=== PATIENT | male | born 1965 | race Caucasian/White ===

== ENCOUNTER 2017-11-17 10:49 | Emergency (ER) | payer BC, OTHER ==
[2017-11-17] MEDS ORDERED: Sodium Chloride 0.9% 10 ML Syringe FLUSH PRN (11:41)
--- NOTE | 2017-11-17 11:50 | EDM.PDOC ---
ED HPI GENERAL MEDICAL PROBLEM - General Chief Complaint: Abdominal Pain Stated Complaint: ABDOMINAL PAIN Time Seen by Provider: 11/17/17 12:00 Source of Information: Reports: Patient, Old Records History Limitations: Reports: No Limitations - History of Present Illness INITIAL COMMENTS - FREE TEXT/NARRATIVE: 52-year-old male [place] for evaluation and treatment of right upper quadrant abdominal pain. Patient reports he first developed pain on November 08. Reports pain in the right upper quadrant. He was seen in the [facility] in [place] on November 12. Labs and imaging were done. She was referred to his primary care provider. He states that he presented there today but due to pain he was sent to the ER. Patient is currently complaining of episodic right upper quadrant pain. States now the pain is a 3 or 4. He has been taking ibuprofen with little symptom relief. He being concerned today when he appreciated a "lump " to the right upper quadrant. Patient denies any associated fevers, vomiting, pruritus, jaundice, urinary symptoms, diarrhea or constipation. Reports that his bowel movements have been softer than normal. No melena or hematochezia. Reports he has been feeling nauseous. Patient denies any recent illness. He denies any recent trauma. Unknown what triggered the right upper quadrant pain. Abdominal Pain Score (Numeric/FACES): 3 - Related Data Allergies Allergy/AdvReac Type Severity Reaction Status Date / Time No Known Allergies Allergy Verified 11/17/17 10:57 Home Meds: Home Meds Fluticasone Propionate [Flovent] 2 spray INH DAILY 11/17/17 [History] SUMAtriptan Succinate [Sumatriptan Succinate] 50 mg PO ASDIRECTED 11/17/17 [ History] Sucralfate [Carafate] 1 gm PO TID #30 tablet 11/17/17 [Rx] Venlafaxine HCl [Venlafaxine HCl ER] 225 mg PO DAILY 11/17/17 [History] amLODIPine [Norvasc] 5 mg PO DAILY 11/17/17 [History] Past Medical History HEENT History: Reports: Hard of Hearing, Impaired Vision Other HEENT History: hearing aids; wears glasses Cardiovascular History: Reports: Hypertension Respiratory History: Reports: Sleep Apnea Genitourinary History: Reports: Renal Calculus Neurological History: Reports: Migraines Psychiatric History: Reports: Depression - Past Surgical History GI Surgical History: Reports: Cholecystectomy Social & Family History - Family History Family Medical History: Noncontributory - Tobacco Use Smoking Status *Q: Never Smoker - Caffeine Use Caffeine Use: Reports: Coffee - Recreational Drug Use Recreational Drug Use: No ED ROS GENERAL - Review of Systems Review Of Systems: See Below Constitutional: Denies: Fever, Chills Respiratory: Denies: Shortness of Breath, Cough Cardiovascular: Denies: Chest Pain GI/Abdominal: Reports: Abdominal Pain (RUQ). Denies: Constipation, Diarrhea, Hematochezia, Melena, Nausea, Vomiting : Denies: Dysuria, Hematuria Skin: Reports: Lumps (RUQ). Denies: Jaundice, Pruritis ED EXAM, GI/ABD - Physical Exam Exam: See Below Exam Limited By: No Limitations General Appearance: Alert, WD/WN, No Apparent Distress Respiratory/Chest: No Respiratory Distress, Lungs Clear, Normal Breath Sounds Cardiovascular: Normal Peripheral Pulses, Regular Rate, Rhythm, Systolic Murmur (grade 2) GI/Abdominal Exam: Normal Bowel Sounds, Soft, Non-Tender, Hepatomegaly. No: Distended, Guarding, Rigid, Rebound Neurological: Alert, Oriented, Normal Cognition Psychiatric: Flat Affect Skin Exam: Warm, Dry, Normal Color Course - Vital Signs Last Recorded V/S: Last Vital Signs Temp 36.1 C 11/17/17 10:57 Pulse 61 11/17/17 10:57 Resp 18 11/17/17 10:57 BP 137/99 H 11/17/17 10:57 Pulse Ox 99 11/17/17 10:57 - Orders/Labs/Meds Labs: Laboratory Tests 11/17/17 11/17/17 11/17/17 Range/Units 11:55 11:55 13:15 WBC 5.75 (4.23-9.07) K/mm3 RBC 4.99 (4.63-6.08) M/mm3 Hgb 14.3 (13.7-17.5) gm/L Hct 41.8 (40.1-51.0) % MCV 83.8 (79.0-92.2) fl MCH 28.7 (25.7-32.2) pg MCHC 34.2 (32.2-35.5) g/dl RDW Std Deviation 41.3 (35.1-43.9) fL Plt Count 223 (163-337) K/mm3 MPV 8.9 L (9.4-12.3) fl Neutrophils % (Manual) 53 (40-60) % Band Neutrophils % 0 (0-10) % Lymphocytes % (Manual) 33 (20-40) % Atypical Lymphs % 0 % Monocytes % (Manual) 12 H (2-10) % Eosinophils % (Manual) 2 (0.8-7.0) % Basophils % (Manual) 0 L (0.2-1.2) Platelet Estimate Adequate Plt Morphology Comment Normal RBC Morph Comment Normal Sodium 140 (136-145) mEq/L Potassium 4.7 (3.5-5.1) mEq/L Chloride 109 H (98-107) mEq/L Carbon Dioxide 23 (21-32) mEq/L Anion Gap 12.7 (5-15) BUN 21 H (7-18) mg/dL Creatinine 1.0 (0.7-1.3) mg/dL Est Cr Clr Drug Dosing 94.13 mL/min Estimated GFR (MDRD) > 60 (>60) mL/min BUN/Creatinine Ratio 21.0 H (14-18) Glucose 99 (74-106) mg/dL Calcium 9.1 (8.5-10.1) mg/dL Total Bilirubin 0.4 (0.2-1.0) mg/dL AST 28 (15-37) U/L ALT 51 (16-63) U/L Alkaline Phosphatase 110 (46-116) U/L C-Reactive Protein < 0.2 (<1.0) mg/dL Total Protein 7.1 (6.4-8.2) g/dl Albumin 3.7 (3.4-5.0) g/dl Globulin 3.4 gm/dL Albumin/Globulin Ratio 1.1 (1-2) Lipase 168 (73-393) U/L Urine Color Yellow (Yellow) Urine Appearance Clear (Clear) Urine pH 6.0 (5.0-8.0) Ur Specific [place] > or = 1.030 (1.005-1.030) Urine Protein Negative (Negative) Urine Glucose (UA) Negative (Negative) Urine Ketones Negative (Negative) Urine Occult Blood Negative (Negative) Urine Nitrite Negative (Negative) Urine Bilirubin Negative (Negative) Urine Urobilinogen 0.2 (0.2-1.0) Ur Leukocyte Esterase Negative (Negative) Urine RBC 0-5 (0-5) /hpf Urine WBC Not seen (0-5) /hpf Ur Epithelial Cells 0-5 (0-5) /hpf Urine Bacteria Not seen (FEW) /hpf Urine Mucus Not seen (FEW) /hpf Meds: Medications Discontinued Medications Generic Name Dose Route Start Last Admin Trade Name Freq PRN Reason Stop Dose Admin Sodium Chloride 10 ml 11/17/17 11:41 11/17/17 13:13 Saline Flush FLUSH 10 ml ASDIRECTED PRN Administration Keep Vein Open - Radiology Interpretation Free Text/Narrative:: Limited abdominal ultrasound: Multiple real-time images of the upper right abdomen were obtained. Comparison: No previous abdominal imaging. Findings: Liver is echogenic. No focal abnormality is identified within the liver. Right kidney shows no hydronephrosis. Parapelvic cyst is noted inferiorly measuring 2.5 cm. Small cortical scar is seen within the mid right kidney. No shadowing calculi are seen within the kidneys. Pancreas is incompletely seen. Visualized portions of the pancreas are unremarkable. Previous cholecystectomy is noted. No biliary duct dilatation is seen. Inferior vena cava is patent. Portal vein shows normal hepatopedal flow. Impression: 1. Incidental parapelvic cyst within the lower right kidney. Small cortical scar within the mid right kidney. 2. Echogenic liver compatible with fatty infiltration. 3. Prior cholecystectomy with no biliary duct dilatation. - Re-Assessments/Exams Free Text/Narrative Re-Assessment/Exam: 11/17/17 15:25 The patient has brought in his labs and imaging [facility] as well as from his recent ER visit [facility] the [place] [facility] [place]. The CT scan showed a fatty liver and a small, 9 mm, cyst in the liver. No other abnormalities were found. We were obtained in ultrasound today which did not show anything remarkable. His labs today have been unremarkable. I do not see a reason today to repeat a CT as his symptoms are find been unchanged. He has been in no acute distress since entering the ER and has refused pain medication. I will have him follow-up with his primary care provider. They may need to discuss an upper endoscopy is is possibly something like an ulcer causing his pain. I do feel that lump to the areas his liver. He does have hepatomegaly on exam. The pain to the right upper quadrant could also be from hepatomegaly causing stretch to the liver capsule. We will discharge him home. He is instructed to return to the ER for symptoms change or worsen. I attempted to call the [place] [facility] to speak with Dr. Mckay but she has left for the day. I will have him follow-up with Dr. Mckay to get a referral to see either GI or surgeon for an upper endoscopy. Departure - Departure Time of Disposition: 15:33 Disposition: Home, Self-Care 01 Condition: Fair Clinical Impression: Abdominal pain - Discharge Information Prescriptions: Sucralfate [Carafate] 1 gm PO TID #30 tablet Instructions: Abdominal Pain, Adult, [id number] Referrals: Ivett Mckay DO [Primary Care Provider] - Forms: ED Department Discharge Additional Instructions: Carafate 1 tab 3 times a day one hour prior to meals. Follow-up with Dr. Mckay next week. Recommend discussing upper endoscopy with her for further evaluation. Continuing take your omeprazole as prescribed. Tylenol or Motrin as needed for discomfort. Please return to the ER if your symptoms change or worsen.
--- NOTE | 2017-11-17 13:35 | US ---
Limited abdominal ultrasound: Multiple real-time images of the upper right abdomen were obtained. Comparison: No previous abdominal imaging. Findings: Liver is echogenic. No focal abnormality is identified within the liver. Right kidney shows no hydronephrosis. Parapelvic cyst is noted inferiorly measuring 2.5 cm. Small cortical scar is seen within the mid right kidney. No shadowing calculi are seen within the kidneys. Pancreas is incompletely seen. Visualized portions of the pancreas are unremarkable. Previous cholecystectomy is noted. No biliary duct dilatation is seen. Inferior vena cava is patent. Portal vein shows normal hepatopedal flow. Impression: 1. Incidental parapelvic cyst within the lower right kidney. Small cortical scar within the mid right kidney. 2. Echogenic liver compatible with fatty infiltration. 3. Prior cholecystectomy with no biliary duct dilatation. Diagnostic code #2
== END 2017-11-17 15:52 | disposition home or self-care (01) ==
LOC: JD.ED 10:49
DX: R10.11 Right upper quadrant pain (principal); N28.1 Cyst of kidney, acquired; I10 Essential (primary) hypertension; F32.9 Major depressive disorder, single episode, unspecified; Z90.49 Acquired absence of other specified parts of digestive tract; Z79.899 Other long term (current) drug therapy
CPT/HCPCS: 36415; 76705; 80053; 81001; 83690; 85025; 86140; 99284; J7050; 99283

== ENCOUNTER 2018-01-08 08:13 | Day surgery (SDC) | payer OTHER ==
[~2018-01-08 08:13] MED LIST: Lactated Ringers 1,000 ML IV SCH; Lidocaine 1%/Sod Bicarbonate in NS 8.4% 1 ML Syringe IDERM PRN; Propofol 200 MG/20 ML SDV ONE; Sodium Chloride 0.9% 10 ML Syringe FLUSH PRN
--- NOTE | 2018-01-08 08:50 | PCM.PREANE ---
Preanesthetic Assessment - Anesthesia/Transfusion/Family Hx Anesthesia History: Prior Anesthesia Without Reaction Family History of Anesthesia Reaction: No Transfusion History: No Prior Transfusion(s) Intubation History: Unknown - Review of Systems General: No Symptoms Pulmonary: No Symptoms Cardiovascular: No Symptoms Gastrointestinal: No Symptoms Neurological: No Symptoms Other: Reports: None - Physical Assessment NPO Status Date: 01/08/18 NPO Status Time: 01:30 Pulse: 57 O2 Sat by Pulse Oximetry: 98 Respiratory Rate: 16 Blood Pressure: 134/96 Temperature: 97.6 C Vital Signs: Last Vital Signs Temp 36.6 C 01/08/18 08:15 Pulse 57 L 01/08/18 08:15 Resp 16 01/08/18 08:15 BP 134/96 H 01/08/18 08:15 Pulse Ox 98 01/08/18 08:15 Height: 1.8 m Weight: 97.522 kg ASA Class: 2 Mental Status: Alert & Oriented x3 Airway Class: Mallampati = 2 Dentition: Reports: Normal Dentition Thyro-Mental Finger Breadths: 2 Mouth Opening Finger Breadths: 3 Lungs: Clear to Auscultation, Normal Respiratory Effort Cardiovascular: Regular Rate, Murmurs - Allergies Allergies/Adverse Reactions: Allergies Allergy/AdvReac Type Severity Reaction Status Date / Time No Known Allergies Allergy Verified 01/05/18 11:03 - Acknowledgements Anesthesia Type Planned: MAC Pt an Appropriate Candidate for the Planned Anesthesia: Yes Alternatives and Risks of Anesthesia Discussed w Pt/Guardian: Yes Pt/Guardian Understands and Agrees with Anesthesia Plan: Yes PreAnesthesia Questionnaire HEENT History: Reports: Hard of Hearing, Impaired Vision Other HEENT History: hearing aids; wears glasses Cardiovascular History: Reports: Hypertension, SOB on Exertion, Other (See Below ) (murmur noted) Respiratory History: Reports: Sleep Apnea (CPAP) Gastrointestinal History: Reports: GERD (tx with medication), Other (See Below) Other Gastrointestinal History: umbilical hernia, fattyt liver, hepatomegaly Genitourinary History: Reports: Renal Calculus, Other (See Below) Other Genitourinary History: enlarged prostate, right renal cyst [employer] History: Reports: None Musculoskeletal History: Reports: None Neurological History: Reports: Migraines, Other (See Below) Other Neuro History: schmorl's node Psychiatric History: Reports: Depression, PTSD Endocrine/Metabolic History: Reports: None Hematologic History: Reports: None Immunologic History: Reports: None Oncologic (Cancer) History: Reports: None Dermatologic History: Reports: None - Infectious Disease History Infectious Disease History: Reports: Shingles - Past Surgical History Head Surgeries/Procedures: Reports: None Cardiovascular Surgical History: Reports: None Respiratory Surgical History: Reports: None GI Surgical History: Reports: Cholecystectomy Female Surgical History: Reports: None Male Surgical History: Reports: None Endocrine Surgical History: Reports: None Neurological Surgical History: Reports: None Musculoskeletal Surgical History: Reports: None Oncologic Surgical History: Reports: None Dermatological Surgical History: Reports: None - SUBSTANCE USE Smoking Status *Q: Never Smoker Recreational Drug Use History: No - HOME MEDS Home Medications: Home Meds Fluticasone Propionate [Flovent] 2 spray INH DAILY PRN 11/17/17 [History] SUMAtriptan Succinate [Sumatriptan Succinate] 50 mg PO ASDIRECTED PRN 11/17/17 [ History] Cholecalciferol (Vitamin D3) [Vitamin D3] 3,000 unit PO DAILY 01/05/18 [History] Ibuprofen [Motrin] 2 - 4 tab PO Q6H PRN 01/05/18 [History] Multivitamin [Daily Carlos] 1 tab PO DAILY 01/05/18 [History] Omeprazole 20 mg PO DAILY 01/05/18 [History] amLODIPine Besylate [Amlodipine Besylate] 5 mg PO DAILY 01/05/18 [History] - CURRENT (IN HOUSE) MEDS Current Meds: Current Medications Lactated Ringer's (Ringers, Lactated) 1,000 mls @ 125 mls/hr IV ASDIRECTED AMY Stop: 01/08/18 23:00 Last Admin: 01/08/18 08:30 Dose: 125 mls/hr Lidocaine/Sodium Bicarbonate (Buffered Lidocaine 1% In Ns 8.4%) 0.25 ml IDERM ONETIME PRN PRN Reason: Prior to IV Start Stop: 01/08/18 18:00 Last Admin: 01/08/18 08:30 Dose: 0.25 ml Sodium Chloride (Saline Flush) 10 ml FLUSH ASDIRECTED PRN PRN Reason: Keep Vein Open Stop: 01/08/18 18:00 Discontinued Medications Propofol (Diprivan 20 Ml) Confirm Administered Dose 200 mg .ROUTE .STK-MED ONE Stop: 01/08/18 07:15 Propofol (Diprivan 20 Ml) Confirm Administered Dose 200 mg .ROUTE .STK-MED ONE Stop: 01/08/18 07:17
[2018-01-08] MEDS ORDERED: fentaNYL 100 MCG/2 ML SDV ONE (10:00)
[2018-01-08] MEDS ORDERED: Propofol 200 MG/20 ML SDV ONE (10:06)
[2018-01-08] MEDS ORDERED: Simethicone Drops 40 MG/0.6 ML 30 ML Bottle ONE (10:15)
--- NOTE | 2018-01-08 10:37 | PCM.OPNOTE ---
- General Post-Op/Procedure Note Date of Surgery/Procedure: 01/08/18 Operative Procedure(s): egd with bx and colonoscopy to cecum Pre Op Diagnosis: GERD/change in bowel habits Post-Op Diagnosis: Same Anesthesia Technique: MAC Primary Surgeon: Mike Cueva EBL in mLs: 0 Complications: None Condition: Good
--- NOTE | 2018-01-08 10:40 | PCM48HPAN ---
Post Anesthesia Note - EVALUATION WITHIN 48HRS OF ANESTHETIC Vital Signs in Normal Range: Yes Patient Participated in Evaluation: Yes Respiratory Function Stable: Yes Airway Patent: Yes Cardiovascular Function Stable: Yes Hydration Status Stable: Yes Pain Control Satisfactory: Yes Nausea and Vomiting Control Satisfactory: Yes Mental Status Recovered: Yes Pulse Rate: 57 Resp Rate: 16 Temperature: 97.6 C Blood Pressure: 134/96 - COMMENTS/OBSERVATIONS Free Text/Narrative:: awake, VVS, rests quietly, no c/0
--- NOTE | 2018-01-09 07:40 | OR ---
DATE OF OPERATION: 01/08/2018 SURGEON: Mike Cueva MD PREOPERATIVE DIAGNOSIS: Change in bowel habits. POSTOPERATIVE DIAGNOSIS: Change in bowel habits. OPERATION PERFORMED: Colonoscopy to the cecum. FINDINGS: A normal study. ANESTHESIA: Done under IV sedation. DESCRIPTION OF PROCEDURE: The patient having been taken to the endoscopy room, connected to monitoring equipment, given IV sedation for upper GI endoscopy. IV sedation was continued for colonoscopy. He was placed in the left lateral position. Perianal area was inspected and it was normal. Rectal exam showed good sphincter tone. A video Olympus colonoscope was then introduced into the rectum and threaded up without problem to the cecum, where the appendicular orifice or the ileocecal valve was noted. Prep was excellent. [place] Cleansing Score grade A throughout the colon, and the scope was slowly withdrawn showing the cecum, ascending colon, transverse colon, descending colon, sigmoid colon, and rectum. Retroflexed view was done. The patient tolerated the procedure, sent to recovery room in a stable condition, and will be followed up in the clinic. ESTIMATED BLOOD LOSS: MMODAL /[id number]
--- NOTE | 2018-01-09 10:06 | OR ---
DATE OF OPERATION: 01/08/2018 SURGEON: Mike Cueva MD PREOPERATIVE DIAGNOSIS: Gastroesophageal reflux disease. POSTOPERATIVE DIAGNOSIS: Gastroesophageal reflux disease. OPERATION PERFORMED: Esophagogastroduodenoscopy with biopsy. FINDINGS: Second portion of the duodenum, duodenal bulb, pyloric channel unremarkable. Antrum showed stunting of the mucosa with some linear erosions. Biopsies were taken of body of the stomach, was unremarkable. The fundus could not be clearly seen at this moment as patient was vomiting and the scope was withdrawn and oropharynx was sucked out. Vital signs remained stable, oxygenation was unremarkable, and the scope was then reinserted. The GE junction showing a hiatal hernia and what appeared to be a mild inflammation of the GE junction. This was biopsied. Rest of the esophagus viewed as the scope withdrawn unremarkable. ANESTHESIA: The procedure was done under IV sedation. DESCRIPTION OF PROCEDURE: Patient was taken to the endoscopy room, placed in a supine position, connected to monitoring equipment, given IV sedation, placed in left lateral position. Bite block was inserted, and video Olympus gastroscope placed in the posterior oropharynx, under direct vision, past the cricopharyngeus down the esophagus into the stomach. Stomach was insufflated. The scope passed through the pylorus to the second portion of the duodenum, was slowly withdrawn showing the normal second portion of the duodenal bulb and pyloric channel. Antrum did show flattening gastric mucosa and hint of the erosions and biopsies were taken of this. J-maneuver was attempted, but this time patient began to retch. Food particles were noted in the stomach. The scope was withdrawn and vital signs were checked, oxygenation being stable, and additional sedation given. The scope was then reinserted down to the GE junction, which was then biopsied showing the above findings. Rest of the esophagus was viewed, the scope withdrawn. The patient tolerated the procedure, sent to recovery room and IV sedation continued for colonoscopy. ESTIMATED BLOOD LOSS: MMODAL /[id number]
--- NOTE | 2018-01-22 12:23 | HP ---
DATE OF ADMISSION: 01/08/2018 CHIEF COMPLAINT: Right upper quadrant pain. HISTORY OF PRESENT ILLNESS: A 52-year-old male, right upper quadrant pain and tenderness and bulge, right rib pain, umbilical hernia, metallic taste in the mouth, new heart murmur, has inability to wean PPIs, nausea, intermittent change in bowel habits, and light colored stool. No prior screening colonoscopy. Need for EGD and diagnostic colonoscopy. Discussed the need for EGD and diagnostic colonoscopy, risks and complications. He understands and consents. 52-year-old, referred by Dr. Elvira Mckay of [facility] in [place] with such pain. He presented to the emergency room with waves of pain that occurred with position change. Complained of pain and swelling to the right abdomen, thigh pain extending to the right. Back pain is rated at 5+. At visit, the pain increased with deep breathing and palpation. No reported pain. Pain takes patient's breath away at times. The patient was advised to start IV Protonix and was given Toradol in the emergency room. UA was negative. D-dimer negative. Troponin was negative. CMP was negative. No evidence of radiopaque obstructing stones were noted. No evidence of nephrolithiasis. EKG was complete per note. Per ED record, the ED provider did speak with radiologist who reported that soft tissue and muscles were very symmetric on CT. No masses were seen. No inflammatory changes and common bile duct was not dilated. Ultrasound for further evaluation could be considered, but suspicions were very low at that time and no abdominal aortic aneurysm. With this, the vertebrae had an anatomic variation. He is noted to have an enlarged prostate. REVIEW OF SYSTEMS: Denied any exertional chest pains, shortness of breath, cough, hoarseness, wheezing, fainting, weakness, numbness, or convulsions. PAST MEDICAL HISTORY: Depression, enlarged prostate, fatty liver, hepatomegaly, hypertension, renal stones, migraines, posttraumatic stress disorder, renal cysts, shingles, sleep apnea, and history of cholecystectomy. CURRENT MEDICATIONS: Per medication reconciliation form. SOCIAL HISTORY: Never smoked. Never used smokeless tobacco. No alcohol use. FAMILY HISTORY: Daughter had bladder reflux and father had type 2 diabetes. PHYSICAL EXAMINATION: GENERAL: Revealed alert, cooperative, in no distress. VITAL SIGNS: Pulse 80, temperature 97, respirations 16, and blood pressure 132/100. EYES, EARS, NOSE AND THROAT: Unremarkable. NECK: Supple. LUNGS: Clear. HEART: Tones regular rate. No S3, S4, jugular venous distention, or murmurs. ABDOMEN: Soft. No tenderness, guarding, rebound, organomegaly, or pulsatile masses. Small reducible umbilical hernia noted. No change. EXTREMITIES: Normal. SKIN: Normal. MUSCULOSKELETAL: No gross deformities. NEUROLOGIC: Cranial nerves all intact. PSYCHIATRIC: Psychic behavior normal. DATA: Hemoglobin A1c was 5. Lipid panel unremarkable. ASSESSMENT: Right upper quadrant pain as stated above. PLAN: EGD, colonoscopy. Risks and complications discussed. He understands, consents. MMODAL /[id number]
== END 2018-01-08 11:32 | disposition home or self-care (01) ==
LOC: JD.SDS 08:13
PROVIDERS: ATTEND Surgery
DX: K21.9 Gastro-esophageal reflux disease without esophagitis (principal); R19.4 Change in bowel habit; K20.9 Esophagitis, unspecified; R10.11 Right upper quadrant pain; I10 Essential (primary) hypertension; F32.9 Major depressive disorder, single episode, unspecified; N40.0 Benign prostatic hyperplasia without lower urinary tract symptoms; G47.33 Obstructive sleep apnea (adult) (pediatric); Z79.899 Other long term (current) drug therapy
CPT/HCPCS: 43239; 45378; A9270; J3010; J7120; 00813; J2704

== ENCOUNTER 2021-10-29 15:59 | Emergency (ER) | payer OTHER | END 2021-10-29 19:00 | disposition home or self-care (01) | LOC: JD.ED 15:59 | DX: R41.89 Other symptoms and signs involving cognitive functions and awareness (principal); I10 Essential (primary) hypertension; K21.9 Gastro-esophageal reflux disease without esophagitis; Z79.899 Other long term (current) drug therapy | CPT/HCPCS: 36415; 70450; 70450-26; 80053; 84439; 84443; 85025; 86769; 99284-25 ==

== ENCOUNTER 2025-02-26 08:23 | Day surgery (SDC) | payer OTHER ==
[~2025-02-26 08:23] MED LIST changes: -Lactated Ringers 1,000 ML IV SCH; -Lidocaine 1%/Sod Bicarbonate in NS 8.4% 1 ML Syringe IDERM PRN; -Propofol 200 MG/20 ML SDV ONE; +Sodium Chloride 0.9% 10 ML Syringe FLUSH SCH
[2025-02-26] MEDS ORDERED: Sodium Chloride 0.9% 100 ML IV ONE (08:24)
[2025-02-26] MEDS: Lactated Ringers 1,000 ML IV SCH (08:45)
[2025-02-26] MEDS ORDERED: propofoL 500 MG/50 ML 50 ML ONE (09:11)
[2025-02-26] MEDS ORDERED: fentaNYL 100 MCG/2 ML SDV ONE ×2 (09:11→10:52)
[2025-02-26] MEDS ORDERED: Lidocaine 1% 5 ML VIAL ONE (09:14)
[2025-02-26] MEDS ORDERED: dexmedeTOMIDine HCl 200 MCG/2 ML SDV ONE (09:14)
[2025-02-26] MEDS ORDERED: Ondansetron 4 MG/2 ML SDV ONE (09:14)
[2025-02-26] MEDS ORDERED: Propofol 200 MG/20 ML SDV ONE ×3 (09:35→11:00)
[2025-02-26] MEDS: EPINEPHrine 1 MG/ML SDV ONE (10:22)
[2025-02-26] MEDS ORDERED: ceFAZolin 2 GM Vial ONE (10:47)
[2025-02-26] MEDS ORDERED: Dexamethasone 4 MG/ML 5 ML MDV ONE (10:48)
[2025-02-26] MEDS ORDERED: Ondansetron 4 MG/2 ML SDV IVPUSH PRN (11:27)
[2025-02-26] MEDS ORDERED: fentaNYL 100 MCG/2 ML SDV IVPUSH PRN (11:27)
[2025-02-26] MEDS ORDERED: HYDROmorphone 0.5 MG/0.5 ML Syringe IVPUSH PRN (11:27)
== END 2025-02-26 13:52 | disposition home or self-care (01) ==
LOC: JD.SDS 08:23
PROVIDERS: ATTEND Orthopaedic Surgery
DX: S83.282A Other tear of lateral meniscus, current injury, left knee, initial encounter (principal); M94.262 Chondromalacia, left knee; I10 Essential (primary) hypertension; K21.9 Gastro-esophageal reflux disease without esophagitis; F32.A Depression, unspecified; Z79.899 Other long term (current) drug therapy
CPT/HCPCS: 29881; J0171; J0690; J1100; J2003; J2405; J2704; J3010; J7120; 01400